=== PATIENT | male | born 1975 | race African-American/Black ===

== ENCOUNTER 2017-02-19 18:09 | Emergency (ER) | payer MEDICAID ==
[~2017-02-19] VITALS: Ht 165.1 cm; Wt 79.4 kg
[2017-02-19 18:19] VITALS: BP 155/87
--- NOTE | 2017-02-19 18:20 | NUR ---
BIB [facility] C/O MID STERNAL CHEST PAIN, NON RADIATING X 1 HR S/P METH USE. PATIENT ARRIVED [facility], REFUSING TO COOPERATE. DOES NOT WANT TO PROVIDE FURTHER INFORMATION
--- NOTE | 2017-02-19 19:11 | NUR ---
EKG IN PROGRESS
--- NOTE | 2017-02-19 19:11 | NUR ---
BLOOD SAMPLE SENT TO LAB
[2017-02-19 19:14] LABS: BASOPHILS # (AUTO) 0.3 /CMM (0.0-0.2); BASOPHILS % (AUTO) 2.5 % (0.0-2.0); EOSINOPHILS % (AUTO) 0.2 % (0.0-6.0); HEMATOCRIT 45 % (39-51); HEMOGLOBIN 15.2 g/dL (13.5-17.5); LYMPHOCYTES # (AUTO) 2.2 /CMM (0.8-4.8); LYMPHOCYTES % (AUTO) 21.3 % (20.0-44.0); MEAN CORPUSCULAR HEMOGLOBIN 30 PG (26.0-33.0); MEAN CORPUSCULAR HGB CONC 34 g/dl (31.0-36.0); MEAN CORPUSCULAR VOLUME 89 fL (80-96); MONOCYTES # (AUTO) 0.6 /CMM (0.1-1.30); MONOCYTES % (AUTO) 6.1 % (2.0-12.0); NEUTROPHILS # (AUTO) 7.1 /CMM (1.8-8.9); NEUTROPHILS % (AUTO) 69.9 % (43.0-81.0); PLATELET COUNT (AUTO) 255 /CMM (150-450); RDW COEFFICIENT OF VARIATION 11.9 (11.5-15.0); RED BLOOD CELL COUNT(AUTO) 5.06 MIL/uL (4.5-6.0); WHITE BLOOD COUNT (AUTO) 10.2 K/uL (4.3-11.0)
[2017-02-19 19:24] LABS: CALCIUM, SERUM 9.7 mg/dL (8.5-10.1); CREATININE 1.2 mg/dL (0.6-1.3); POTASSIUM 3.4 mmol/L (3.5-5.1)
--- NOTE | 2017-02-19 19:30 | NUR ---
IV removed. Catheter intact and site benign. Pressure and 4x4 applied to site. No bleeding noted.
--- NOTE | 2017-02-19 19:39 | NUR ---
Patient eloped from facility. ER MD notified.
== END 2017-02-19 19:41 | disposition left against medical advice (07) ==
LOC: ER 18:11
DX: F15.10 Other stimulant abuse, uncomplicated (principal)
CPT/HCPCS: 36415; 71010; 80048; 80305; 85025; 93005; 99285; A4606; Z7610